=== PATIENT | female | born 1980 | race Caucasian/White ===

== ENCOUNTER 2019-03-14 09:34 | Outpatient (REF) | payer OTHER, SELFPAY ==
[2019-03-14 22:03] LABS: Anion Gap 7.9 mmol/L (3-11); BUN 9 mg/dL (7-18); CO2 29.1 mmol/L (21.0-32.0); CREATININE 0.78 mg/dL (0.55-1.02); Calcium 9.2 mg/dL (8.5-10.1); Chloride 97 mmol/L (98-107); Cholesterol 177 mg/dL (50-200); Glucose 80 mg/dL (70-100); HDL Cholesterol 59 mg/dL (40-60); LDL CHOLESTEROL 90 mg/dL (<100); Potassium 3.6 mmol/L (3.5-5.1); Sodium 134 mmol/L (136-145); TSH 1.15 uIU/mL (0.358-3.74); Triglyceride 112 mg/dL (30-150)
== END 2019-03-14 09:54 ==
LOC: NCHCN 09:34
PROVIDERS: PCP Family Medicine; Visit Provider Registered Nurse
DX: I10 Essential (primary) hypertension (principal); Z00.00 Encounter for general adult medical examination without abnormal findings; E03.9 Hypothyroidism, unspecified; E66.9 Obesity, unspecified
CPT/HCPCS: 80048; 80061; 83721; 84443

== ENCOUNTER 2019-05-28 17:06 | Outpatient (REF) | payer OTHER, SELFPAY ==
[2019-05-28 21:30] LABS: Sodium 138 mmol/L (136-145)
== END 2019-05-28 17:26 ==
LOC: NCHCN 17:06
PROVIDERS: PCP Family Medicine; Visit Provider Registered Nurse
DX: E87.1 Hypo-osmolality and hyponatremia (principal)
CPT/HCPCS: 84295

== ENCOUNTER 2020-03-11 10:32 | Outpatient (REF) | payer OTHER, SELFPAY ==
[2020-03-11 21:11] LABS: Anion Gap 8.7 mmol/L (3-11); BUN 13 mg/dL (7-18); CO2 26.3 mmol/L (21.0-32.0); CREATININE 0.85 mg/dL (0.55-1.02); Calcium 9.4 mg/dL (8.5-10.1); Chloride 101 mmol/L (98-107); Glucose 79 mg/dL (74-106); Sodium 136 mmol/L (136-145); TSH 1.16 uIU/mL (0.36-3.74)
== END 2020-03-11 10:52 ==
LOC: NCHCN 10:32
PROVIDERS: PCP Family Medicine; Visit Provider Registered Nurse
DX: I10 Essential (primary) hypertension (principal); E03.9 Hypothyroidism, unspecified
CPT/HCPCS: 80048; 84443

== ENCOUNTER 2021-06-17 15:35 | Outpatient (REF) | payer OTHER, SELFPAY ==
[2021-06-17 22:25] LABS: Anion Gap 9.8 mmol/L (3-11); BUN 14 mg/dL (7-18); CO2 26.2 mmol/L (21.0-32.0); CREATININE 0.8 mg/dL (0.55-1.02); Calcium 9.1 mg/dL (8.5-10.1); Chloride 105 mmol/L (98-107); Glucose 93 mg/dL (74-106); Potassium 3.6 mmol/L (3.5-5.1); Sodium 141 mmol/L (136-145); TSH (W/Ref FT4) 0.67 uIU/mL (0.36-3.74)
== END 2021-06-17 15:36 | disposition home or self-care (01) ==
LOC: NCHCN 15:35
PROVIDERS: PCP Family Medicine; Visit Provider Registered Nurse
DX: I10 Essential (primary) hypertension (principal); E03.9 Hypothyroidism, unspecified
CPT/HCPCS: 80048; 84443

== ENCOUNTER 2022-08-06 15:05 | Outpatient (REF) | payer OTHER, SELFPAY ==
[2022-08-06 17:10] LABS: Anion Gap 6.5 mmol/L (3-11); BUN 15 mg/dL (7-18); CO2 26.5 mmol/L (21.0-32.0); CREATININE 0.8 mg/dL (0.55-1.02); Calcium 9.4 mg/dL (8.5-10.1); Chloride 105 mmol/L (98-107); Glucose 94 mg/dL (74-106); Potassium 4.5 mmol/L (3.5-5.1); Sodium 138 mmol/L (136-145); TSH 1.32 uIU/mL (0.36-3.74)
== END 2022-08-06 15:06 | disposition home or self-care (01) ==
LOC: NCHCN 15:05
PROVIDERS: PCP Family Medicine; Visit Provider Registered Nurse
DX: I10 Essential (primary) hypertension (principal); E03.9 Hypothyroidism, unspecified
CPT/HCPCS: 80048; 84443

== ENCOUNTER 2022-10-13 10:52 | Outpatient (REF) | payer OTHER, SELFPAY ==
--- NOTE | 2022-10-13 10:45 | PAPFT_PTH ---
PATIENT: Eileen Nayak LOC: [facility]#:[id number] AGE/SX: 41/F ROOM: RE10/13/[address]: Shaista Hoffman : 1980 BED: DIS: 10/13/2022 SPEC #: [id number] RECD: 10/13/22 17:43 STATUS: KATH REQ #: [id number] MATTI: 10/13/22 10:[address]: Shaista Hoffman DEPT: [facility] Cytology RECD BY: Karla Bowers ENTERED: 10/13/22 17:44 SP TYPE: PAPFT OTHR DR: Jovan Hilliard Tissues: 1 - CX/ENDOCX FOR PAP SMEARS Procedures: PAP THIN PREP/[facility] Screening HPV DNA PROBE Comments: [id number]
== END 2022-10-13 10:53 | disposition home or self-care (01) ==
LOC: NCHCN 10:52
PROVIDERS: PCP Family Medicine; Visit Provider Registered Nurse
DX: Z00.00 Encounter for general adult medical examination without abnormal findings (principal); Z12.4 Encounter for screening for malignant neoplasm of cervix; Z11.51 Encounter for screening for human papillomavirus (HPV)
CPT/HCPCS: 88142; 87624

== ENCOUNTER 2024-04-30 17:58 | Outpatient (REF) | payer OTHER, SELFPAY ==
[2024-04-30 21:45] LABS: Hemoglobin A1C 5.3 % (<5.7)
[2024-04-30 21:53] LABS: Anion Gap 5.1 mmol/L (3-11); BUN 8 mg/dL (7-18); CO2 28.9 mmol/L (21.0-32.0); CREATININE 0.9 mg/dL (0.55-1.02); Calcium 9.4 mg/dL (8.5-10.1); Chloride 103 mmol/L (98-107); Estimated GFR 80.34 (mL/min/1.73m2); Glucose 98 mg/dL (74-106); Potassium 3.9 mmol/L (3.5-5.1); Sodium 137 mmol/L (136-145); TSH (W/Ref FT4) 1.91 uIU/mL (0.36-3.74)
== END 2024-04-30 17:59 | disposition home or self-care (01) ==
LOC: NCHCN 17:58
PROVIDERS: PCP Family Medicine; Visit Provider Family Medicine
DX: R53.83 Other fatigue (principal); E03.9 Hypothyroidism, unspecified; I10 Essential (primary) hypertension
CPT/HCPCS: 80048; 83036; 84443

== ENCOUNTER 2025-06-05 14:46 | Outpatient (REF) | payer OTHER, SELFPAY ==
[2025-06-05 16:10] LABS: Anion Gap 8.9 mmol/L (3-11); BUN 10 mg/dL (7-18); CO2 27.1 mmol/L (21.0-32.0); Calcium 9.4 mg/dL (8.5-10.1); Chloride 103 mmol/L (98-107); Estimated GFR 91.97 (mL/min/1.73m2); Glucose 98 mg/dL (74-106); Potassium 3.5 mmol/L (3.5-5.1); Sodium 139 mmol/L (136-145); TSH (W/Ref FT4) 1.87 uIU/mL (0.36-3.74)
== END 2025-06-05 14:47 | disposition home or self-care (01) ==
LOC: NCHCN 14:46
PROVIDERS: PCP Family Medicine; Visit Provider Family Medicine
DX: I10 Essential (primary) hypertension (principal); E03.9 Hypothyroidism, unspecified
CPT/HCPCS: 80048; 84443